=== PATIENT | female | born 1980 | race Caucasian/White ===

== ENCOUNTER 2023-05-16 06:55 | Day surgery (SDC) | payer BC ==
[2023-05-16 07:21] LABS: BHCG - Serum Negative (NEGATIVE); Pregs Control Background? CLEAR/WHITE (CLR/WHITE); Pregs Control Bar Appear? YES (CONTROL BAR)
[2023-05-16] MEDS ORDERED: Lidocaine 1% PF 5 ML VIAL ONE (07:31)
[2023-05-16] MEDS ORDERED: Sodium Bicarbonate 2.5 MEQ/5 ML VIAL ONE (07:31)
[2023-05-16 08:06] VITALS: BP 128/85; TEMP 98.2
[2023-05-16 10:05] LABS: CSF Source CSF; Clarity Clear (Clear); Tube # 4
[2023-05-16 10:25] LABS: CSF, Glucose 53 mg/dl (40-70); CSF, Protein 23 mg/dL (15-40)
== END 2023-05-16 09:35 | disposition home or self-care (01) ==
LOC: RAD 06:55
PROVIDERS: ATTEND Psychiatry & Neurology Neurology
PROC: 00JU3ZZ Inspection of Spinal Canal, Percutaneous Approach (ICD-10-PCS; principal; 2023-05-16)
DX: G37.9 Demyelinating disease of central nervous system, unspecified (principal); R93.89 Abnormal findings on diagnostic imaging of other specified body structures; F07.81 Postconcussional syndrome
CPT/HCPCS: 62270; 82040; 82042; 82784; 82945; 83873; 83916; 84157; 84703; 86592; 87529; 87899; 89051

== ENCOUNTER 2023-05-19 14:14 | Emergency (ER) | payer BC ==
[2023-05-19] MEDS ORDERED: Acetaminophen 500 MG TAB ONE (16:16)
[2023-05-19] MEDS ORDERED: Dexamethasone 10 MG/ML VIAL ONE (16:16)
[2023-05-19] MEDS ORDERED: Metoclopramide HCl 10 MG/2 ML VIAL ONE (16:16)
[2023-05-19] MEDS ORDERED: diphenhydrAMINE 50 MG/ML VIAL ONE (16:46)
[2023-05-19] MEDS ORDERED: Caffeine/Sodium Benzoate 0.5 GM in Sodium Chloride 0.9% 1,000 ML IVPB SCH (17:00)
== END 2023-05-19 20:32 | disposition home or self-care (01) ==
LOC: ERS 14:14
DX: R51.9 Headache, unspecified (principal)
CPT/HCPCS: 96365; 96367; 96375; J0706; J1100; J1200; J2765; J7050